=== PATIENT | male | born 1970 | race Caucasian/White ===

== ENCOUNTER → 2019-09-23 09:50 | Outpatient (CLI) | payer BC, SELFPAY | PROVIDERS: Referring Provider Internal Medicine Gastroenterology; Visit Provider Internal Medicine Gastroenterology | DX: Z11.59 Encounter for screening for other viral diseases (principal) | CPT/HCPCS: 87635; C9803; U0005; U0003 ==

== ENCOUNTER → 2020-01-09 10:13 | Outpatient (CLI) | payer BC, SELFPAY ==
--- NOTE | 2020-01-09 10:22 | NM_ITS ---
CLINICAL: 49-year-old male with reported history of painful left hip arthroplasty operated approximately 5 years previous. THREE PHASE PELVIS- WHOLE BODY RADIONUCLIDE 99m Tc MDP BONE SCINTIGRAPHY COMPARISON: None available FINDINGS: Following the intravenous administration of 25.5 mCi of 99m Tc MDP, bone images reveal: 1. The flow and immediate static blood pool acquisitions of the pelvis demonstrate normal arterial and venous phase distribution of the radiopharmaceutical. 2. Delayed acquisitions demonstrate facilitated uptake in the greater trochanteric aspect and proximal-distal femoral component of the symptomatic left hip prosthesis. 3. Facilitated tracer concentration is noted in the right-left temporomandibular joints, upper cervical spine posteriorly on the left, the acromioclavicular and sternoclavicular compartments of both shoulders, bilateral knees, right ankle. 3. The remaining skeletal structures are scintigraphically unremarkable with normal-appearing renal images and urinary bladder activity identified. An increase in tracer distribution is visualized in the bilateral mandible and maxilla most consistent with periodontal disease and/or periostitis. NM/Bone Scan Whole Body IMPRESSION: 1. The increase in radiopharmaceutical concentration identified in the trochanteric and femoral components of the symptomatic left hip prosthesis is consistent with a high likelihood of loosening in the setting of operative intervention > 2 years prior to the current presentation. If an infectious etiology is a diagnostic consideration, correlation with labeled leukocyte imaging is recommended. 2. Degenerative arthritis appears expressed in the cervical spine, bilateral temporomandibular joints, shoulders bilaterally, right and left knees, the right ankle. Electronically Signed: Adolph Garber DO at 21:36 EDT Tel , Service support ,
== END ==
PROVIDERS: Referring Provider Orthopaedic Surgery; Visit Provider Orthopaedic Surgery
DX: M25.552 Pain in left hip (principal)
CPT/HCPCS: 78306

== ENCOUNTER → 2020-08-14 10:34 | Outpatient (CLI) | payer BC, SELFPAY ==
[2020-08-14 12:47] LABS: Hematocrit 52.8 % (40-54); Hemoglobin 15.8 g/dL (13.0-16.5); Mean Corp Hgb Conc 29.9 g/dL (32-36); Mean Corpuscular Hgb 24.5 pg (27.0-32.0); Mean Corpuscular Volume 81.9 fL (80-94); Mean Platelet Vol. 11.2 fl (6.2-12.0); Platelet Count 223 K/mm3 (150-450); RBC Distribution Width CV 17.7 % (11.6-14.6); RBC Distribution Width SD 48.6 fl (35.1-43.9); Red Blood Count 6.45 M/mm3 (4.6-6.2); White Blood Count 5.2 K/mm3 (4.4-11.0)
[2020-08-14 13:17] LABS: Ferritin 7 ng/mL (26-388); Iron 35 ug/dL (65-175)
[2020-08-15 20:07] LABS: Endomysial Antibody IgA Positive (Negative)
[2020-08-15 21:42] LABS: Immunoglobulin A 272 mg/dL (90-386); t-Transglutaminase IgA >100 U/mL (0-3)
== END ==
PROVIDERS: Referring Provider Internal Medicine Gastroenterology; Visit Provider Internal Medicine Gastroenterology
DX: D50.9 Iron deficiency anemia, unspecified (principal)
CPT/HCPCS: 36415; 82728; 82784; 83516; 83540; 85027; 86255